=== PATIENT | female | born 1960 | race Caucasian/White ===

== ENCOUNTER → 2022-01-04 | Day surgery (SDC) | payer OTHER | END | disposition home or self-care (01) | LOC: FMAMMOTONE 12:28 | PROVIDERS: ATTEND Obstetrics & Gynecology | PROC: 0HBT3ZX Excision of Right Breast, Percutaneous Approach, Diagnostic (ICD-10-PCS; principal; 2022-01-04) | DX: N60.11 Diffuse cystic mastopathy of right breast (principal); N60.91 Unspecified benign mammary dysplasia of right breast; N64.89 Other specified disorders of breast; R92.0 Mammographic microcalcification found on diagnostic imaging of breast | CPT/HCPCS: 19081; 76098-TC-FY; 87899; 88305-TC; A4648 ==

== ENCOUNTER 2022-01-31 04:14 | Day surgery (SDC) | payer OTHER ==
[2022-01-30 12:19] VITALS: BMI 27.2
[2022-01-31] MEDS ORDERED: ISOSULFAN BLUE 50 MG/5 ML VIAL SQ ONE (15:11)
[2022-01-31] MEDS ORDERED: MIDAZOLAM HCL 2 MG/2 ML SINGLE DOSE VIAL ONE (15:21)
[2022-01-31] MEDS ORDERED: PROPOFOL 80 ML ONE (15:21)
[2022-01-31] MEDS ORDERED: LIDOCAINE HCL/PF 2% SDV 5ML VIAL ONE (15:21)
[2022-01-31] MEDS ORDERED: BUPIVACAINE HCL/PF 0.5% (5MG/ML) 10 ML VIAL IJ ONE (16:10)
[2022-01-31] MEDS ORDERED: LIDOCAINE 1%/EPI 1:100000 (20 ML MULTI DOSE VIAL) IJ ONE (16:10)
[2022-01-31] MEDS ORDERED: ONDANSETRON 4 MG/2 ML VIAL IVPUSH PRN (16:14)
[2022-01-31] MEDS ORDERED: ACETAMINOPHEN 1000 MG/100 ML BAG IVPB ONE (16:14)
[2022-01-31] MEDS ORDERED: LACTATED RINGERS SOLUTION 1,000 ML IV SCH (16:15)
[2022-01-31] MEDS ORDERED: ACETAMINOPHEN INJECTION 100 ML IVPB ONE (16:36)
[2022-01-31 18:06] VITALS: RESP 16
[2022-01-31 18:38] VITALS: BP 125/75; PULSE 59; TEMP 97
== END 2022-01-31 18:55 | disposition home or self-care (01) ==
LOC: JASU-SURG 04:14
PROVIDERS: ATTEND Surgery Surgical Oncology
PROC: 0HBT0ZZ Excision of Right Breast, Open Approach (ICD-10-PCS; principal; 2022-01-31 15:20)
DX: N60.11 Diffuse cystic mastopathy of right breast (principal)
CPT/HCPCS: 19281; 76098-TC-FY; 88307-TC; 88341-TC; 88342-TC; 94760; A4648

== ENCOUNTER → 2022-11-28 | Day surgery (SDC) | payer OTHER | END | disposition home or self-care (01) | LOC: JRADUS-SUR 10:02 | PROVIDERS: ATTEND Registered Nurse | PROC: 07D63ZX Extraction of Left Axillary Lymphatic, Percutaneous Approach, Diagnostic (ICD-10-PCS; principal; 2022-11-28) | DX: C77.3 Secondary and unspecified malignant neoplasm of axilla and upper limb lymph nodes (principal) | CPT/HCPCS: 19083; 38505; 87899; 88305-TC; 88341-TC; 88342-TC ==

== ENCOUNTER 2023-02-21 04:19 | Inpatient (IN) | payer OTHER ==
[2023-02-19 16:22] VITALS: BMI 25.8
[2023-02-21] MEDS ORDERED: FENTANYL CITRATE/PF 50 MCG/ML VIAL ONE ×5 (07:06→11:23)
[2023-02-21] MEDS ORDERED: LIDOCAINE HCL/PF 2% SDV 5ML VIAL ONE (07:06)
[2023-02-21] MEDS ORDERED: PROPOFOL 20 ML ONE (07:06)
[2023-02-21] MEDS ORDERED: ROCURONIUM BROMIDE 50 MG/5 ML SYRINGE ONE (07:06)
[2023-02-21] MEDS ORDERED: SUCCINYLCHOLINE CHLORIDE 200 MG/10 ML SYRINGE ONE (07:07)
[2023-02-21] MEDS ORDERED: MIDAZOLAM HCL 2 MG/2 ML SINGLE DOSE VIAL ONE (07:07)
[2023-02-21] MEDS ORDERED: BUPIVACAINE HCL/PF 0.25% (2.5MG/ML) 10 ML VIAL ONE (07:37)
[2023-02-21] MEDS ORDERED: HEPARIN NA (PORCINE) 5,000 UNITS/ML 1ML VIAL ONE (07:37)
[2023-02-21] MEDS ORDERED: SCOPOLAMINE HYDROBROMIDE 1 PATCH PATCH.TD72 ONE (07:45)
[2023-02-21] MEDS ORDERED: DEXAMETHASONE SOD PHOSPHATE 4 MG/1 ML VIAL ONE (08:27)
[2023-02-21] MEDS ORDERED: ceFAZolin SODIUM 1 GM VIAL ONE (08:27)
[2023-02-21] MEDS ORDERED: ceFAZolin SODIUM 1 GM VIAL IVPB ONE (08:30)
[2023-02-21] MEDS ORDERED: HEPARIN NA (PORCINE) 5,000 UNITS/ML 1ML VIAL SQ ONE (08:33)
[2023-02-21] MEDS: BUPIVACAINE HCL/PF 0.25% (2.5MG/ML) 10 ML VIAL IJ ONE ×2 (09:05→11:25)
[2023-02-21] MEDS ORDERED: ONDANSETRON 4 MG/2 ML VIAL ONE (10:15)
[2023-02-21] MEDS ORDERED: KETOROLAC TROMETHAMINE 30 MG/1 ML VIAL ONE (10:15)
[2023-02-21] MEDS ORDERED: PROMETHAZINE HCL 25 MG/1 ML VIAL IVPB PRN (10:55)
[2023-02-21] MEDS ORDERED: ONDANSETRON 4 MG/2 ML VIAL IVPUSH PRN ×2 (10:55→17:05)
[2023-02-21] MEDS ORDERED: ACETAMINOPHEN 1000 MG/100 ML BAG IVPB PRN (10:55)
[2023-02-21] MEDS ORDERED: HYDROmorphone *PCA* 10MG/50ML DISP.SYRIN PCA SCH (11:00)
[2023-02-21] MEDS ORDERED: HYDROmorphone *PCA* 10MG/50ML DISP.SYRIN ONE (11:08)
[2023-02-21] MEDS ORDERED: KETOROLAC TROMETHAMINE 15 MG/ML VIAL IVPUSH SCH (11:30)
[2023-02-21] MEDS: LACTATED RINGERS SOLUTION 1,000 ML IV SCH ×2 (11:30→13:28)
[2023-02-21] MEDS ORDERED: ACETAMINOPHEN 1000 MG/100 ML BAG IVPB ONE (12:18)
[2023-02-21] MEDS: KETOROLAC TROMETHAMINE 15 MG/ML VIAL IVPUSH SCH ×2 (18:40→21:00)
[2023-02-21] MEDS ORDERED: NOREPINEPHRINE 0.9 % NACL 8 MG/250 ML BAG IVPB SCH (20:45)
[2023-02-21] MEDS ORDERED: VASOPRESSIN 40 UNITS/100 ML BAG IV SCH (20:45)
[2023-02-21] MEDS: KETOROLAC TROMETHAMINE 30 MG/1 ML VIAL IVPUSH SCH (21:00)
[2023-02-21] MEDS ORDERED: MAG HYDROX/AL HYDROX/SIMETH 30 ML UNIT-DOSE CUP PO ONE (22:35)
[2023-02-22] MEDS: KETOROLAC TROMETHAMINE 30 MG/1 ML VIAL IVPUSH SCH ×3 (04:47→15:31)
[2023-02-22 08:03] LABS: HEMATOCRIT 40.2 % (32.4-45.2); HEMOGLOBIN 13.1 GM/dL (10.7-15.3); MCH 27.3 pg (25.7-33.7); MCHC 32.6 g/dl (32.0-36.0); MEAN CELL VOLUME 83.7 fl (80-96); MEAN PLT VOLUME 10.6 fl (7.5-11.1); PLATELET COUNT 257 10^3/uL (134-434); RDW 14.9 % (11.6-15.6); WHITE BLOOD COUNT 15.1 K/mm3 (4.0-10.0)
[2023-02-22 09:12] LABS: ALBUMIN 3.8 g/dl (3.4-5.0); BLOOD UREA NITROGEN 6.7 mg/dL (7-18); CALCIUM 8.8 mg/dL (8.5-10.1); MAGNESIUM 2.4 mg/dL (1.8-2.4)
[2023-02-22 09:15] LABS: PHOSPHOROUS 3.7 mg/dL (2.5-4.9)
[2023-02-22 09:16] LABS: CREATININE 0.7 mg/dL (0.55-1.3); TOT PROT 7.3 g/dl (6.4-8.2)
[2023-02-22 09:17] LABS: BILIRUBIN,TOTAL 0.5 mg/dL (0.2-1)
[2023-02-22] MEDS ORDERED: HEPARIN NA (PORCINE) 5,000 UNITS/ML 1ML VIAL SQ SCH (10:00)
[2023-02-22] MEDS: LACTATED RINGERS SOLUTION 1,000 ML IV SCH (11:30)
[2023-02-22 15:21] VITALS: TEMP 98.6
[2023-02-22 18:31] VITALS: BP 106/65; PULSE 74; RESP 15
== END 2023-02-22 19:15 | disposition home or self-care (01) | DRG 580 ==
LOC: J2C 04:19 → JICU 13:00
PROVIDERS: ADMIT Student in an Organized Health Care Education/Training Program; ATTEND Student in an Organized Health Care Education/Training Program
PROC: 8E0W4CZ Robotic Assisted Procedure of Trunk Region, Percutaneous Endoscopic Approach (ICD-10-PCS; 2023-02-21)
PROC: 07B74ZX Excision of Thorax Lymphatic, Percutaneous Endoscopic Approach, Diagnostic (ICD-10-PCS; principal; 2023-02-21 08:00)
DX: C50.912 Malignant neoplasm of unspecified site of left female breast (principal); J98.11 Atelectasis; R59.0 Localized enlarged lymph nodes; E03.9 Hypothyroidism, unspecified
CPT/HCPCS: 36415; 71045-TC-FY; 80053; 82962; 83735; 84100; 85027; 87070; 87075; 87102; 87116; 87205; 87206; 87210; 88307-TC; 88331-TC; 94010; 94760; 94761; 97116-GP; 97161-GP; J1644

== ENCOUNTER 2024-07-30 06:59 | Day surgery (SDC) | payer OTHER ==
[2024-07-30] MEDS ORDERED: LIDOCAINE HCL/PF 2% SDV 5ML VIAL ONE (07:39)
[2024-07-30] MEDS ORDERED: PROPOFOL 60 ML ONE (07:39)
[2024-07-30 07:41] VITALS: BMI 22.8
[2024-07-30] MEDS ORDERED: ePHEDrine SULFATE 50 MG/1 ML AMPULE ONE (07:47)
[2024-07-30 09:02] VITALS: RESP 19; TEMP 97.8
[2024-07-30 09:06] VITALS: BP 102/59; PULSE 56
== END 2024-07-30 09:15 | disposition home or self-care (01) ==
LOC: FASU-ENDO 06:59
PROVIDERS: ATTEND Internal Medicine Gastroenterology
PROC: 0DJD8ZZ Inspection of Lower Intestinal Tract, Via Natural or Artificial Opening Endoscopic (ICD-10-PCS; principal; 2024-07-30 08:18)
DX: Z12.11 Encounter for screening for malignant neoplasm of colon (principal); K57.30 Diverticulosis of large intestine without perforation or abscess without bleeding